=== PATIENT | male | born 1960 | race Caucasian/White ===

== ENCOUNTER → 2021-04-19 | Outpatient (CLI) | payer OTHER ==
--- NOTE | 2021-04-19 16:16 | XR ---
EXAMINATION TYPE: XR shoulder 2 views LT, XR hand 3 views DATE OF EXAM: 04/19/2021 Comparison: None Clinical History: 60-year-old male Left hand and shoulder pain Findings: Left shoulder: Moderate degenerative change AC joint with joint space narrowing and marginal spurring. There is some synovial calcification or tiny loose bodies are present along the superior aspect of the AC joint. S ubacromial space is preserved. No tendinous or bursal calcification seen. No acute fracture, subluxat ion, or dislocation. Left hand: Mild degenerative change first CMC joint and mild at the triscaphe joint. There is some joint space n arrowing and marginal spurring. No acute fracture, subluxation, or dislocation seen. Impression: 1. Left shoulder: 2 views showing moderate AC joint OA. No acute osseous abnormality seen. 2. Left hand: Mild osteoarthritic change at the base of the thumb. No acute osseous abnormality seen.
== END | disposition home or self-care (01) ==
LOC: RADXRMAIN 12:52
PROVIDERS: ATTEND Internal Medicine
DX: M19.012 Primary osteoarthritis, left shoulder (principal); M19.042 Primary osteoarthritis, left hand

== ENCOUNTER → 2021-06-10 | Outpatient (CLI) | payer OTHER ==
--- NOTE | 2021-06-11 02:30 | MR ---
EXAMINATION TYPE: MR cervical spine wo con DATE OF EXAM: 06/10/2021 COMPARISON: None HISTORY: Limited ROM left shoulder and arm, neck pain. Multiplanar multiecho imaging of the cervical spine without contrast. There is degenerative disc space narrowing at C5-6 and C6-7. There is mild posterior disc bulging at C3-4 and C4-5 and C6-7. Spinal canal is narrowed to 5.5 mm at C4-5 which is the narrowest point. [place] l measures 6.5 mm at C6-7. Cervical cord shows no edema. No compression fracture. Brainstem is intact . IMPRESSION: Multilevel posterior disc bulging and herniation as above. Mild spinal stenosis at C3-4 and C4-5 and C6-7.
== END | disposition home or self-care (01) ==
LOC: RADMRIMAIN 20:08
PROVIDERS: ATTEND Orthopaedic Surgery
DX: M48.02 Spinal stenosis, cervical region (principal); M50.20 Other cervical disc displacement, unspecified cervical region
CPT/HCPCS: 72141

== ENCOUNTER → 2021-10-07 | Outpatient (CLI) | payer OTHER ==
[2021-10-07 22:37] LABS: Basophils # (A) 0.13 X 10*3/uL (0.00-0.10); Basophils % (A) 1.5 %; Eosinophils # (A) 0.41 X 10*3/uL (0.04-0.35); Eosinophils % (A) 4.6 %; HCT 42.8 % (39.6-50.0); HGB 14.2 g/dL (13.0-17.0); Immature Grans, Automated 0.7 %; Lymphocytes # (A) 2.07 X 10*3/uL (0.90-5.00); Lymphocytes % (A) 23.4 %; MCH 30.5 pg (27.0-32.0); MCHC 33.2 g/dL (32.0-37.0); Monocytes # (A) 0.74 X 10*3/uL (0.20-1.00); Monocytes % (A) 8.4 %; NRBC Per 100 WBC 0 /100 WBCS (0.0-0.0); Neutrophils # (A) 5.43 X 10*3/uL (1.80-7.70); Neutrophils % (A) 61.4 %; Platelet Count 234 X 10*3/uL (140-440); RBC 4.65 X 10*6/uL (4.40-5.60); WBC 8.84 X 10*3/uL (4.50-10.00)
[2021-10-07 23:04] LABS: INR 1.01 (0.90-1.11); Prothrombin Time 11.4 sec (9.9-11.9)
[2021-10-07 23:50] LABS: African American GFR (CKD) 50.1 (60.0-200.0); Anion Gap 6.3 mmol/L (10.00-18.00); BUN/Creat Ratio 11.18 Ratio (12.00-20.00); Blood Urea Nitrogen 18.9 mg/dL (9.0-27.0); Calcium 9.3 mg/dL (8.7-10.3); Carbon Dioxide 29.5 mmol/L (20.0-27.5); Non-African American GFR(CKD) 43.2 (60.0-200.0); Potassium 4.3 mmol/L (3.5-5.5)
== END | disposition home or self-care (01) ==
LOC: LABPAT 13:35
PROVIDERS: ATTEND Orthopaedic Surgery
DX: Z01.812 Encounter for preprocedural laboratory examination (principal); M47.12 Other spondylosis with myelopathy, cervical region
CPT/HCPCS: 36415; 80048; 85025; 85610; 87070; 93005

== ENCOUNTER 2023-04-13 14:41 | Emergency (ER) | payer OTHER ==
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
[2023-04-13 15:08] VITALS: RESP 18
--- NOTE | 2023-04-13 16:03 | US ---
EXAMINATION TYPE: US venous doppler duplex LE LT DATE OF EXAM: 04/13/2023 3:51 PM COMPARISON: NONE CLINICAL INDICATION: Male, 62 years old with history of leg swelling; Pain left leg, edema left leg f or 3-4 months SIDE PERFORMED: left TECHNIQUE: The lower extremity deep venous system is examined utilizing real time linear array sonog ya with graded compression, doppler sonography and color-flow sonography. VESSELS IMAGED: Common Femoral Vein Deep Femoral Vein Greater Saphenous Vein * Femoral Vein Popliteal Vein Small Saphenous Vein * Proximal Calf Veins (* superficial vessels) Left Leg: no evidence of DVT. Lymph nodes left groin, largest = 3.2 x 1.0 x 2.9cm . This has a purvi l fatty hilar [place]. IMPRESSION: No evidence of deep venous thrombosis.
[2023-04-13 16:20] LABS: Basophils # (A) 0.1 k/uL (0-0.2); Basophils % (A) 1 %; Eosinophils # (A) 0.7 k/uL (0-0.7); Eosinophils % (A) 7 %; HCT 46.4 % (39.0-53.0); HGB 15.4 gm/dL (13.0-17.5); Lymphocytes # (A) 1.5 k/uL (1.0-4.8); Lymphocytes % (A) 16 %; MCH 30.4 pg (25.0-35.0); MCHC 33.2 g/dL (31.0-37.0); MCV 91.6 fL (80.0-100.0); Mean Platelet Volume 7.5; Monocytes # (A) 0.6 k/uL (0-1.0); Monocytes % (A) 6 %; Neutrophils # (A) 6.8 k/uL (1.3-7.7); Neutrophils % (A) 69 %; Platelet Count 214 k/uL (150-450); RBC 5.07 m/uL (4.30-5.90); RDW 13.3 % (11.5-15.5); WBC 9.9 k/uL (3.8-10.6)
[2023-04-13 16:58] LABS: ALT 20 U/L (4-49); AST 33 U/L (17-59); African American GFR (CKD) >90 (>60 ml/min/1.73 sqM); Albumin 4.3 g/dL (3.5-5.0); Alkaline Phosphatase 59 U/L (38-126); Anion Gap 7 mmol/L; Blood Urea Nitrogen 17 mg/dL (9-20); Calcium 9.2 mg/dL (8.4-10.2); Carbon Dioxide 26 mmol/L (22-30); Chloride 109 mmol/L (98-107); Glucose 89 mg/dL (74-99); Non-African American GFR(CKD) 79 (>60 ml/min/1.73 sqM); Sodium 142 mmol/L (137-145); Total Bilirubin 0.6 mg/dL (0.2-1.3); Total Protein 7.1 g/dL (6.3-8.2)
[2023-04-13 17:07] LABS: NT-Pro-B-Type Natriuretic Pept 140 pg/mL
[2023-04-13 19:12] VITALS: BP 130/72; PULSE 82; TEMP 98.2
[2023-04-13] MEDS: MORPHINE SULFATE 4 MG/ML SYRINGE IV STA (19:39)
== END 2023-04-13 19:49 | disposition home or self-care (01) ==
LOC: EC 14:41
DX: L03.90 Cellulitis, unspecified (principal); F12.90 Cannabis use, unspecified, uncomplicated; F17.200 Nicotine dependence, unspecified, uncomplicated
CPT/HCPCS: 36415; 83880; 80053; 85025; 93971; 99284; 96374; J2270

== ENCOUNTER → 2023-10-03 | Outpatient (CLI) | payer OTHER ==
--- NOTE | 2023-10-03 09:16 | CTL ---
EXAMINATION TYPE: CT Low Dose Lung DATE OF EXAM ORDERED: 10/03/2023 HISTORY: 62-year-old male with Z1 2.2 current smoker with approximately 80 pack-year history. Lung ca ncer screening CT DLP: 72 mGycm Automated exposure control for dose reduction was used. SCREENING VISIT: Baseline COMPARISON: None TECHNIQUE: Low dose computed tomography scan was performed through the chest at 1 mm thick sections a nd reconstructed images in multiple planes at 1 mm and [address] DIAGNOSTIC QUALITY: Satisfactory FINDINGS: The heart is normal size without pericardial effusion. Extensive LAD and lesser degree of RCA coronar y artery calcifications are present. Aorta normal caliber with mild atherosclerotic arch calcifications and conventional arch vessel branc johanna anatomy. No thoracic lymphadenopathy by CT size criteria. Moderate diffuse bronchial wall thickening. Mild emphysematous change. Mild hazy dependent atelectasi s in the lungs. No consolidation or pleural effusion. No suspicious pulmonary nodule is seen. Visualized upper abdomen shows mild to moderate atherosclerotic calcifications of the abdominal aorta and partially visualized exophytic cyst from the left kidney upper pole measuring up to 4.4 cm. Bones: Mild degenerative disc disease mid to lower thoracic spine. Degenerative change sternoclavicul ar joints. IMPRESSION: 1. Lung RADS 1, negative. No suspicious pulmonary nodules. 2. COPD with mild emphysema. There is either a prominent component of chronic bronchitis versus super imposed acute bronchitis. Recommend smoking cessation. 3. Prominent LAD coronary artery calcifications. CT LUNG RAD AND CT CHEST RECOMMENDATION: Lung-Rad 1 Negative: Continue annual screening with LDCT in 12 months. S Modifier (other clinically significant findings): None
--- NOTE | 2023-10-03 09:22 | MR ---
EXAMINATION TYPE: MR knee RT wo con DATE OF EXAM: 10/03/2023 COMPARISON: None HISTORY: Rt knee pain TECHNIQUE: Multiplanar, multisequence imaging of the right knee is performed without IV contrast. FINDINGS: MEDIAL MENISCUS: . 3 simple linear tear involving posterior horn of the medial meniscus with adjacent para meniscal cyst LATERAL MENISCUS: Anterior and posterior horns are intact without tear. CRUCIATE LIGAMENTS: There is marked thickening and increased signal in the ACL. PCL intact. COLLATERAL LIGAMENTS: The medial collateral ligament and lateral collateral ligament complex are inta ct and unremarkable. EXTENSOR MECHANISM: Visualized quadriceps and patellar tendons are intact. EFFUSION: There is a moderate-sized suprapatellar bursal fluid collection. POPLITEAL CYST: No popliteal/see cyst. TRICOMPARTMENT SPACES: Tricompartment joint osteoarthritis most marked involving the medial compartme nt. There is fibrillation. 2 chondromalacia of the medial femoral articular route. BONE MARROW SIGNAL: Postsurgical change with artifact seen involving the distal femur. OTHER: Diffuse subcutaneous edema. IMPRESSION: 1. Linear tear posterior horn medial meniscus. 2. There is diffuse thickening and increased signal the ACL could be on the basis of diffuse myxoid d egeneration or chronic ACL tear. Correlate clinically. 3. 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
--- NOTE | 2023-10-03 09:40 | US ---
EXAMINATION TYPE: US Aorta Screening DATE OF EXAM: 10/03/2023 COMPARISON: NONE CLINICAL INDICATION: Male, 62 years old with history of R74.8 ELEVATED LIPASE Z12.2 SCREENING NEOPLAS M OF LUNG; Screening tobacco use. TECHNIQUE: Multiple sonographic images of the abdominal aorta are obtained. FINDINGS: EXAM MEASUREMENTS: Abdominal Aorta: Proximal: 1.7 x 1.5 cm Mid: 1.7 x 1.9 cm Distal: 2.0 x 1.9 cm Bifurcation: Right Iliac: .8 cm Left Iliac: 1.0 cm IMPRESSION: No sonographic evidence for AAA.
--- NOTE | 2023-10-03 09:43 | US ---
EXAMINATION TYPE: US abdomen complete DATE OF EXAM: 10/03/2023 COMPARISON: NONE CLINICAL INDICATION: Male, 62 years old with history of R74.8 ELEVATED LIPASE Z12.2; elevated labs. TECHNIQUE: Multiple sonographic images of the abdomen are obtained. FINDINGS: EXAM MEASUREMENTS: Liver Length: 16.2 cm Gallbladder Wall: .3 cm CBD: .7 cm Spleen: 13.5 cm Right Kidney: 9.6 x 4.1 x 4.5 cm Left Kidney: 10.2 x 5.7 x 4.4 cm Pancreas: Only a portion of the pancreatic neck is seen. The head, body, and tail is largely obscure d by bowel gas shadowing. Liver: Increased attenuation. No focal lesion. Gallbladder: multiple stones seen. No abnormal extension, surrounding fluid, or wall thickening. Evidence for sonographic Rae's sign: No CBD: Mildly dilated. Spleen: Borderline in size. Right Kidney: No hydronephrosis. Left Kidney: An indeterminate, hypoechoic round area seen upper pole 5.0 x 3.9 x 4.6 cm. No hydronep hrosis. Upper IVC: wnl Abd Aorta: wnl IMPRESSION: 1. At least moderate hepatic steatosis. Appropriate clinical management is advised. 2. Multiple gallstones. No ancillary findings of acute cholecystitis. 3. Bile duct is mildly dilated. This may chronic for the patient. Correlate with alkaline phosphatase and bilirubin levels to exclude early biliary obstruction. 4. An indeterminate 5.0 cm round cortical lesion upper pole left kidney. This may represent a cyst. I nternal echoes could represent artifact or debris. Recommend three-month follow-up renal ultrasound t o reassess.
== END | disposition home or self-care (01) ==
LOC: RADMRIMAIN 06:20
PROVIDERS: ATTEND Family Medicine
DX: Z12.2 Encounter for screening for malignant neoplasm of respiratory organs (principal); Z13.6 Encounter for screening for cardiovascular disorders; S83.241A Other tear of medial meniscus, current injury, right knee, initial encounter; I25.10 Atherosclerotic heart disease of native coronary artery without angina pectoris; M17.11 Unilateral primary osteoarthritis, right knee; F17.200 Nicotine dependence, unspecified, uncomplicated; J43.9 Emphysema, unspecified; R74.8 Abnormal levels of other serum enzymes; K76.0 Fatty (change of) liver, not elsewhere classified; K80.20 Calculus of gallbladder without cholecystitis without obstruction
CPT/HCPCS: 71271; 76700; 76706